=== PATIENT | female | born 1945 | race Caucasian/White ===

== ENCOUNTER 2017-06-21 06:55 | Observation (INO) | payer MEDICARE, BC ==
--- NOTE | 2017-06-16 18:36 | HP ---
Amended report to enter cosigning physician. CC: Dr. Charla Lilly; Dr. Gerald Callejas* ADMISSION HISTORY AND PHYSICAL: DATE OF ADMISSION: 06/21/17 ATTENDING SURGEON: Dr. Chad Purdy* (dictated by FARHAT Zhang). CHIEF COMPLAINT: Hiatal hernia. HISTORY OF PRESENT ILLNESS: This is a 71-year-old female, who has a 2-year history of reflux symptoms that have worsened in recent months. She had had an episode of dark stools back in November, which was self-limited. More recently, she has noted increased pressure and discomfort in the epigastric region related to eating and drinking. She has also noticed some difficulty taking a deep breath in relation to eating and drinking. Back in the fall, she had also had some abdominal pain in her left side. Eventually, she underwent workup, which included CT scan on 04/21/17, which showed a moderate-sized hiatal hernia , some fatty changes in the liver, focal intrahepatic biliary ductal dilatation , which was followed up with an MRCP on 05/19/17, which showed no evidence of obstruction. In addition, CT showed evidence of diverticulosis and mild left proximal hydroureter felt to be secondary to a crossing accessory renal vein. EGD was performed on 05/27/[address] Callejas, also confirming the presence of hiatal hernia with patulous GE junction and some evidence of erosions within the hernia sac. The remainder of the endoscopy was normal. The patient reports the early satiety and fullness as well as discomfort. She also notes a weight loss of approximately 9 pounds in the last month or two. She has been maintained on PPI. She was seen in the office by Dr. Purdy on 06/06/17. He has reviewed her workup and has recommended repair of this large hiatal hernia. The patient understands the indications, the risks, benefits, and the expected perioperative course. She would like to proceed as scheduled with laparoscopic repair of hiatal hernia with fundoplication. PAST MEDICAL HISTORY: Hypertension; GERD; left breast cancer; history of tachycardia, previously evaluated by Dr. Fernandez; history of hyponatremia and hypokalemia secondary to prior use of diuretic. She has diplopia, which is felt to be a cranial nerve palsy, possibly related to stroke, though she has had no other symptoms, this has been present and stable for approximately 2 years. 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 CURRENT MEDICATIONS: 1. Amlodipine 5 mg b.i.d. 2. Losartan 25 mg once daily. 3. Rosuvastatin 5 mg once daily. 4. Calcium with vitamin D once daily. 5. Vitamin E 400 mg once daily (the patient has held it in preparation for surgery). 6. Aspirin 81 mg (the patient will have been off for 10 days prior to surgery). 7. Osteo Bi-Flex with glucosamine once daily. 8. Potassium chloride 20 mEq once daily. 9. Fluticasone nasal spray p.r.n. 10. Pantoprazole 40 mg b.i.d. 11. Tamoxifen 20 mg once daily (the patient is instructed to hold before surgery). DRUG ALLERGIES: SULFA (the patient does not recall specific reaction), BETADINE (local reaction with rash and/or hives), TAPE and EKG PADS (local reactions). FAMILY HISTORY: Positive for DVT in a sister, which occurred after a long plane flight. No additional family history of thromboembolic disease. No family history of bleeding or anesthesia problems. SOCIAL HISTORY: The patient is . She is fairly active. She is a life- long nonsmoker. She drinks approximately 1 glass of wine or less per week. She denies other recreational drug use. REVIEW OF SYSTEMS: General: No recent constitutional symptoms or acute illnesses other than described in the HPI. Integument: No acute problems reported. Eyes: Diplopia. No other changes reported. Ears, Nose, and Throat: No problems reported. Cardiovascular: No chest pain or palpitations. EKG performed within the past year. She is treated for hypertension. Respiratory: No history of asthma, chronic cough, or shortness of breath, other than described in the HPI. GI: As above per HPI. No lower GI symptoms. Colonoscopy performed within the past 5 years. GYMNASTIC COACH: No problems reported. Endocrine: No diabetes or thyroid dysfunction. Hematological/Oncological: She is completing a 5-year course of tamoxifen, status post excision DCIS of the left breast. PHYSICAL EXAMINATION GENERAL: Well-nourished, well-developed female, in no acute distress. VITAL SIGNS: Height 63 inches, weight 154 pounds, blood pressure 128/72, pulse 66. HEENT: Pupils are equal, round, reactive. EOMs intact. No conjunctival pallor. Oropharynx: Teeth in good repair. No intraoral lesions. NECK: No lymphadenopathy, thyromegaly, or masses. LUNGS: Clear to auscultation. No wheezes or rales. HEART: Regular rate and rhythm. No murmur appreciated. BREASTS: Not examined. ABDOMEN: Soft, mild tenderness in the epigastric region. No palpable masses or organomegaly. Well-healed Pfannenstiel incision. BACK: No spinous process or CVA tenderness. GENITALIA: Not done. RECTAL: Not done. EXTREMITIES: Trace edema bilaterally. No calf tenderness. NEUROLOGICAL: Grossly intact. SKIN: Warm and dry. No suspicious rashes or lesions noted. IMPRESSION: Hiatal hernia. PLAN: Laparoscopic repair, hiatal hernia with fundoplication. FARHAT ZHANG [id number]/[facility] #: [id number] MTDD
[~2017-06-21 06:55] MED LIST: Buffered Lidocaine 0.9% SYRIN* 5 ML/SYR SYRINGE INTRADERM ONE; Famotidine TAB* 20 MG PO ONE; Metoclopramide TAB* 10 MG PO ONE
[2017-06-21] MEDS ORDERED: Metoclopramide TAB* 10 MG ONE (07:26)
[2017-06-21] MEDS ORDERED: ceFAZolin 1 GM in Dextrose (*) 2 GM/100 ML BAG IVPB ONE (07:26)
[2017-06-21] MEDS ORDERED: Heparin VIAL(*) 5000 UNITS/ML VIAL (FIVE THOUSAND) ONE (07:26)
[2017-06-21] MEDS ORDERED: Famotidine TAB* 20 MG ONE (07:26)
[2017-06-21] MEDS ORDERED: Buffered Lidocaine 0.9% SYRIN* 5 ML/SYR SYRINGE ONE (07:27)
[2017-06-21] MEDS ORDERED: Ondansetron ODT TAB* 4 MG PO PRN (08:02)
[2017-06-21] MEDS ORDERED: fentaNYL* 50 MCG/ML 2 ML VIAL (100 MCG VIAL) IV PRN (08:02)
[2017-06-21] MEDS ORDERED: Naloxone* 0.4 MG/ML 1 ML VIAL IV PRN ×2 (08:02→10:02)
[2017-06-21] MEDS ORDERED: Ondansetron INJ* 2 MG/ML VIAL ONE ×2 (08:04→12:41)
[2017-06-21] MEDS ORDERED: Lidocaine 2% PF * 5 ML VIAL ONE (08:04)
[2017-06-21] MEDS ORDERED: Propofol* 10 MG/ML 20 ML BTL IV PUSH ONE (08:04)
[2017-06-21] MEDS ORDERED: Ketorolac INJ* 30 MG/ML 1 ML VIAL ONE (08:04)
[2017-06-21] MEDS ORDERED: Dexamethasone IV* 4 MG/ML 1 ML (4 MG) ONE (08:04)
[2017-06-21] MEDS ORDERED: Midazolam* 1 MG/ML 5 ML VIAL (5 MG) ONE (08:05)
[2017-06-21] MEDS ORDERED: Phenylephrine INJ* 10 MG/ML 1 ML VIAL (10 MG) ONE (08:05)
[2017-06-21] MEDS ORDERED: Cisatracurium* 2 MG/ML MDV 5 ML ONE (08:05)
[2017-06-21] MEDS ORDERED: fentaNYL* 50 MCG/ML 2 ML VIAL (100 MCG VIAL) ONE ×3 (08:05→12:29)
[2017-06-21] MEDS ORDERED: Bupivacaine 0.25% SDV* 30 ML ONE ×2 (08:43→08:47)
[2017-06-21] MEDS ORDERED: ceFAZolin 1 GM in Dextrose (*) 1 GM/50 ML BAG IVPB ONE (08:56)
[2017-06-21] MEDS ORDERED: EPHEDrine (Pressors)* 50 MG/ML VIAL ONE (09:15)
[2017-06-21] MEDS ORDERED: Ondansetron INJ* 2 MG/ML VIAL IV PRN ×2 (10:02→11:56)
[2017-06-21] MEDS ORDERED: Fluticasone NASAL SPRAY 50MCG* 16 gm SPRAY BTL BOTH NARES PRN (11:55)
[2017-06-21] MEDS ORDERED: HYDROmorphone INJ* 2 MG/ML CARPUJECT SYRINGE IV PRN (11:56)
[2017-06-21] MEDS ORDERED: Ketorolac INJ* 30 MG/ML 1 ML VIAL IV PRN (11:56)
[2017-06-21] MEDS ORDERED: HYDROcodone/ACET. 7.5/325 LIQ* 15 ML UDC PO PRN (12:04)
[2017-06-21] MEDS: fentaNYL* 50 MCG/ML 2 ML VIAL (100 MCG VIAL) IV PRN ×3 (12:06→12:30)
[2017-06-21] MEDS ORDERED: HYDROmorphone INJ* 2 MG/ML CARPUJECT SYRINGE ONE (12:41)
[2017-06-21] MEDS: HYDROmorphone INJ* 1 MG/ML CARPUJECT SYRINGE IV PRN ×2 (12:49→12:59)
[2017-06-21] MEDS: Heparin VIAL(*) 5000 UNITS/ML VIAL (FIVE THOUSAND) SUBCUT SCH ×2 (14:32→22:24)
[2017-06-21] MEDS ORDERED: Losartan TAB* 25 MG PO SCH (18:00)
[2017-06-22] MEDS: Heparin VIAL(*) 5000 UNITS/ML VIAL (FIVE THOUSAND) SUBCUT SCH (05:32)
[2017-06-22] MEDS: Tamoxifen TAB* 10 MG PO SCH ×2 (08:03→08:07)
--- NOTE | 2017-06-22 08:09 | PN ---
Progress Note - Progress Note Date of Service: 06/22/17 SOAP: Subjective: Pt reports VALLADARES overnight with some nausea. She is better now. She has some abd pain and shoulder pain. Objective: Vital Signs Temp 98.1 F 06/22/17 03:37 Pulse 84 06/22/17 03:37 Resp 16 06/22/17 03:37 BP 105/50 06/22/17 03:37 Pulse Ox 97 06/22/17 03:37 Gen: NAD Abd: incisions with dressings c/d/i; soft; min tender. Intake & Output 06/21/17 06/22/17 06/22/17 18:59 06:59 18:59 Intake Total 1925 1511 Output Total 300 1500 950 Balance 1625 11 -950 Weight 153 lb Intake: IV Fluids 1850 911 LR 1750 911 NS 100ML, Cefazolin 2G 100 Oral 75 600 Output: Urine 300 1500 950 Assessment: POD#1 s/p lap PEH repair/Teofilo. Doing well. Plan: OK for discharge. RTO next week.
[2017-06-22 08:46] VITALS: BP 103/53
[2017-06-22] MEDS ORDERED: amLODIPine TAB* 5 MG PO SCH (09:00)
[2017-06-22] MEDS ORDERED: Atorvastatin* 10 MG TAB PO SCH (09:00)
--- NOTE | 2017-06-22 12:17 | OP ---
CC: Charla Lilly MD; Gerald Callejas MD * DATE OF OPERATION: 06/21/17 - ROOM #331 DATE OF : 47 SURGEON: Chad Purdy MD AIRCRAFT ENGINE ASSEMBLER: Cecilio Gonzalez MD PRE-OP DIAGNOSIS: Paraesophageal hernia. POST-OP DIAGNOSIS: Paraesophageal hernia. OPERATIVE PROCEDURE: Laparoscopic repair of paraesophageal hernia with Teofilo fundoplication. ESTIMATED BLOOD LOSS: Less than 10 mL. IV FLUIDS: 1750 mL crystalloid. SPECIMEN: None. DRAINS: None. COMPLICATIONS: None. COUNTS: The instrument, needle, and sponge counts correct. DESCRIPTION OF PROCEDURE: The patient was brought to the operating room and placed on table supine. Sequential compression devices were placed on both lower extremities. General anesthesia was administered. Ontiveros catheter was placed. She was positioned and padded appropriately. She received appropriate intravenous antibiotics. She was prepped and draped in usual sterile fashion. Time-out was performed. Local anesthetic was infiltrated into the skin and soft tissue prior to making each incision. Entry into the abdomen was through a transumbilical incision made vertically to accommodate a 5 mm trocar. After open access of the abdominal cavity, a 5 mm optical trocar was placed into the peritoneal cavity, carbon dioxide was insufflated to a pressure of 15 mmHg. Under direct visualization, 5 mm trocar was placed in the right upper quadrant and the left upper quadrant laterally and a 12 mm trocar was placed in the left upper quadrant medially. A Angela liver retractor was placed percutaneously in the subxiphoid position and used to elevate the left lobe of the liver. There appeared to be a large hiatal hernia, paraesophageal type. The stomach was reduced from the hernia using a hand-over- hand technique with atraumatic graspers. The hernia sac was elevated and incised over the left oskar of the diaphragm. Some short gastric vessels were divided to aid in this dissection. The dissection proceeded through the hernia sac into the mediastinum and the hernia sac was dissected free from the mediastinum with identification and preservation of the vagal trunks. The dissection proceeded across the anterior portion of the hiatus and then from the pars flaccida. The dissection proceeded anterior as well to meet the prior area of dissection. Once the mediastinum had been entered, the dissection proceeded around posteriorly until a window could be created behind the gastroesophageal junction and this was then encircled with a 0.25-inch Girard drain, which was then used to retract the esophagus during the remaining portion of the dissection. A circumferential dissection of the esophagus was completed well up into the mediastinum in order to obtain adequate length of about 4 to 5 cm of intraabdominal esophagus. The vagal trunks were again identified and preserved. LigaSure was used for this dissection. The pleura on each side was identified and dissected free without injury. After completing the dissection, the diaphragmatic hernia was closed with interrupted 0- Ethibond sutures. First two sutures were simple sutures and then the remaining 3 sutures were pledgeted with polyester pledgeting material cut from a vascular patch. The closure was sized around a 56-Yi bougie. After completing the closure of the hiatus, a 360 degree fundo- plication was performed with 0-Ethibond sutures, again used to plicate the fundus. The plication was short and floppy over a 56-Yi bougie with approximately a 2 cm length. The middle suture incorporated portion of the wall of the esophagus. After assuring hemostasis, the ports removed under direct visualization and carbon dioxide was released. The incisions were closed with 4-0 Monocryl in subcuticular fashion and Steri-Strips were applied with dry dressings. The patient tolerated this procedure well. She was extubated and transferred to recovery room in a stable condition. [id number]/[facility] #: [id number] BILL
--- NOTE | 2017-06-23 00:44 | DS ---
CC: Charla Lilly MD; Gerald Callejas MD * DISCHARGE SUMMARY: DATE OF ADMISSION: 06/21/17 DATE OF DISCHARGE: 06/22/17 ATTENDING SURGEON: Chad Purdy MD * (DICTATED BY FARHAT PRADO) HOSPITAL COURSE: Please refer to admission history and physical and operative note for details. The patient was taken to the operating room on 06/21/[address] Purdy and underwent laparoscopic repair of paraesophageal hiatal hernia with Teofilo fundoplication. Surgery was uneventful and as of the morning of discharge, the patient was doing well in terms of oral intake of clear liquids. Her pain was minimal and in fact she is managed on ketorolac only. She was seen in the morning of discharge by Dr. Purdy. PHYSICAL EXAMINATION: Vital Signs: 98.9, blood pressure 103/53, pulse 74, respirations 16, room air saturation 97%. Please see his note for exam details. IMPRESSION: Status post laparoscopic repair paraesophageal hiatal hernia with Teofilo fundoplication, doing well. PLAN: Home today. Instructions were reviewed. She has a followup in our office next week. She will resume her usual medical regimen. FARHAT PRADO [id number]/[facility] #: [id number] MTDD
== END 2017-06-22 09:40 | disposition home or self-care (01) ==
LOC: OR 06:55 → SSU 11:57
PROVIDERS: ADMIT Surgery; ATTEND Surgery
PROC: 0DV44ZZ Restriction of Esophagogastric Junction, Percutaneous Endoscopic Approach (ICD-10-PCS; 2017-06-21)
PROC: 0BQT4ZZ Repair Diaphragm, Percutaneous Endoscopic Approach (ICD-10-PCS; principal; 2017-06-21 08:45)
DX: K44.9 Diaphragmatic hernia without obstruction or gangrene (principal); I10 Essential (primary) hypertension; K21.9 Gastro-esophageal reflux disease without esophagitis; Z79.899 Other long term (current) drug therapy; Z88.2 Allergy status to sulfonamides; Z88.8 Allergy status to other drugs, medicaments and biological substances; Z85.3 Personal history of malignant neoplasm of breast
CPT/HCPCS: 96374; 96375; 96376; A9270-GY; G0378; J0690; J1100; J1170; J1644; J1885; J2250; J2405; J2704; J3010

== ENCOUNTER 2018-07-18 11:09 | Observation (INO) | payer MEDICARE, BC ==
--- OUTSIDE RECORDS SUMMARY | 2018-07-14 16:00 | XMS REPORT | Continuity of Care Document ---
:1945 External Reference #:[id number] Author Name KeyVeronica mcpherson Care Team Providers Name Role Phone Charla Lilly MD Primary Care Physician Unavailable Payers Date Identification Numbers Payment Provider Subscriber Policy Number: [id number] Medicare Candida Kebede PayID: [id number] [address] [place] [address] Policy Number: [id number] [facility] Angus Kebede PayID: [id number] [address] [place] [address] Problems Active Problems Provider Date FH: Myocardial infarct in 1st degree male Allegra Fernandez M.D. Onset: 2016 relative <55 years Mixed hyperlipidemia Allegra Fernandez M.D. Onset: 12/31/2016 Essential hypertension Allegra Fernandez M.D. Onset: 12/31/2016 Palpitations Allegra Fernandez M.D. Onset: 12/31/2016 Diplopia Monty Grace M.D. Onset: 12/21/2016 Multiple cranial nerve palsy Monty Grace M.D. Onset: 11/22/2016 Localized, primary osteoarthritis Vickey Weiner M.D. Onset: 04/03/2015 Family History Date Family Member(s) Observation Comments General cancer in immediate family General Heart Disease General Deep Venous Thrombosis (DVT) Father due to Lung disease () Father due to Heart Disease () Mother Rheumatoid Arthritis 69 yo Mother due to Rheumatoid () Arthritis Mother due to Heart Disease () First Brother Coronary Artery Disease (CAD) 1/2 bro (mother same) [place] under 50 yo Second Brother Coronary Artery Disease (CAD) 1/2 bro (father the same) CABG First Sister Deep Venous Thrombosis (DVT) with huge PE First Sister Pulmonary Embolism (Pe) Social History Type Date Description Comments Sex Unknown Marital Status Lives With spouse Occupation Retired ETOH Use Occasionally consumes wine Tobacco Use Start: Unknown Patient has never smoked Recreational Drug Use Denies Drug Use Smoking Status Reviewed: 07/13/18 Patient has never smoked Exercise Type/Frequency Walks 5 times a week Allergies, Adverse Reactions, Alerts Active Allergies Reaction Severity Comments Date Sulfamethoxazole unknown 09/27/2016 Tape Severe- urticaria with EKG 09/27/2016 stickers, surgical tape EKG Electrodes itch, Red at site per patient 12/31/2016 Betadine itchy, contact dermatitis 03/30/2017 Inactive Allergies NKDA 04/03/2015 Medications Active Medications SIG Qnty Indications Ordering Provider Date Gaviscon 1 tab by mouth Chad Purdy MD, 07/13/2018 80-14.2mg three times a FACS Chewtabs day as needed Co-Enzyme Q-10 1 cap by mouth Other Ordering 06/22/2018 30mg every day Provider Capsules Amlodipine Besylate 1 by mouth twice 90tabs I10 Allegra Fernandez, 02/08/2017 5mg a day M.D. Tablets Fluticasone Propionate 1 spray each Charla Lilly nostril daily as MD Kena 50mcg/Act Suspension needed Calcium + D 1 by mouth once Unknown Tablets daily Rosuvastatin Calcium 1 tablet po Charla Lilly 5mg daily MD Kena Tablets Losartan Potassium 1 by mouth every Unknown 25mg day Tablets Pantoprazole Sodium twice a day Unknown 40mg Tablets DR History Medications Hydrocodone 15 milliliters by 118ml Carol Kruger 06/16/2017 - Bitartrate/Acetaminophen mouth every 4 MD Maury Unknown 7.5-325mg/15ML hours as needed Solution for stronger pain Crestor 1 by mouth every Allegra Fernandez, 12/29/2016 - 10mg Tablets day M.D. 12/30/2016 Rosuvastatin Calcium 1 tablet po daily Cody June, - 5mg Tablets ( medication 02/07/2017 change tuesday12/27/16) Omeprazole 1 by mouth every Unknown - 20mg Capsules DR day Unknown Vitamin E 1 cap po daily Unknown - 400mg Capsules Unknown Osteo Biflex Glucosamine 2 tablet po daily Unknown - Capsules Unknown Aspir-81 1 by mouth every Unknown - 81mg Tablets DR day ( started 06/13/2018 taking 2016 for 1 year now) Potassium Chloride ER 1 tablet po daily Charla Lilly - 20Meq Tablets ER MD Kena Unknown Rosuvastatin Calcium SladeCody, - 5mg Tablets 09/27/2016 Chlorthalidone Charla Lilly - 25mg Tablets MD Kena 09/27/2016 Tamoxifen Citrate Pelaez, - 20mg Tablets DANICA Rashid 09/27/2016 Chlorthalidone 1 tab by mouth Unknown - 25mg Tablets every day Unknown Gabapentin 1 by mouth as Unknown - 100mg Capsules needed for Unknown sciatic pain Crestor 5mg 1 by mouth every Unknown - Tablets day 12/30/2016 Tamoxifen Citrate once a day Unknown - 20mg Tablets Unknown Medications Administered in Office Medication SIG Qnty Indications Ordering Provider Date Depomedrol 40MG Vickey Weiner M.D. 03/30/2017 Injection Technetium TC 99M Cecilio Jj, DO [facility] 01/07/2017 Tetrofosmin, Per Unit Dose Up To 40 Millicuries Injection Depomedrol 40MG Vickey Weiner M.D. 04/03/2015 Injection Vital Signs Date Vital Result Comment 07/13/2018 8:45am Weight 160.00 lb Heart Rate 72 /min BP Systolic 122 mmHg BP Diastolic 72 mmHg Respiratory Rate 16 /min Body Temperature 97.4 F 06/29/2017 9:07am Heart Rate 66 /min BP Systolic Sitting 100 mmHg BP Diastolic Sitting 62 mmHg Respiratory Rate 16 /min Body Temperature 97.3 F 06/16/2017 1:28pm Height 63 inches 5'3" Weight 154.00 lb Heart Rate 66 /min BP Systolic Sitting 128 mmHg BP Diastolic Sitting 72 mmHg Respiratory Rate 18 /min Body Temperature 98.2 F BMI (Body Mass Index) 27.3 kg/m2 06/06/2017 9:02am Height 63 inches 5'3" Weight 154.00 lb Heart Rate 68 /min BP Systolic 128 mmHg BP Diastolic 80 mmHg Respiratory Rate 16 /min Body Temperature 97.5 F BMI (Body Mass Index) 27.3 kg/m2 03/30/2017 11:23am Height 63 inches 5'3" Weight 162.00 lb BP Systolic 134 mmHg BP Diastolic 72 mmHg Respiratory Rate 18 /min Pain Level 7 BMI (Body Mass Index) 28.7 kg/m2 02/08/2017 4:14pm Height 63 inches 5'3" Weight 162.00 lb with shoes Heart Rate 62 /min BP Systolic Sitting 152 mmHg Lue lg cuff BP Diastolic Sitting 100 mmHg Lue lg cuff BP Systolic Standing 160 mmHg Lue lg cuff BP Diastolic Standing 100 mmHg Lue lg cuff Respiratory Rate 17 /min BMI (Body Mass Index) 28.7 kg/m2 Ejection Fraction 55-60% date 02/03/17 ECHO 12/31/2016 9:41am Height 63 inches 5'3" Weight 158.00 lb without shoes Heart Rate 66 /min BP Systolic 150 mmHg Rue reg cuff BP Diastolic 90 mmHg Rue reg cuff BP Systolic Sitting 146 mmHg Lue reg cuff BP Diastolic Sitting 88 mmHg Lue reg cuff BP Systolic Standing 148 mmHg Lue reg cuff BP Diastolic Standing 88 mmHg Lue reg cuff Respiratory Rate 15 /min BMI (Body Mass Index) 28.0 kg/m2 12/21/2016 9:02am Height 63 inches 5'3" Weight 160.00 lb Heart Rate 64 /min BP Systolic 134 mmHg BP Diastolic 74 mmHg Respiratory Rate 12 /min BMI (Body Mass Index) 28.3 kg/m2 11/22/2016 9:22am Height 63 inches 5'3" Weight 150.00 lb Heart Rate 64 /min reg/irregular BP Systolic Sitting 138 mmHg BP Diastolic Sitting 88 mmHg Respiratory Rate 16 /min BMI (Body Mass Index) 26.6 kg/m2 10/05/2016 9:47am Height 63 inches 5'3" Weight 155.00 lb Heart Rate 78 /min BP Systolic Sitting 114 mmHg BP Diastolic Sitting 76 mmHg Respiratory Rate 14 /min BMI (Body Mass Index) 27.5 kg/m2 09/27/2016 2:06pm Height 63 inches 5'3" Weight 155.00 lb Heart Rate 68 /min BP Systolic Sitting 148 mmHg BP Diastolic Sitting 84 mmHg Respiratory Rate 14 /min BMI (Body Mass Index) 27.5 kg/m2 04/03/2015 8:52am Height 63 inches 5'3" Weight 149.00 lb Heart Rate 73 /min BP Systolic 132 mmHg BP Diastolic 84 mmHg BMI (Body Mass Index) 26.4 kg/m2 Results Test Date Facility Test Result H/L Range Note CBC Auto Diff 06/16/2017 [facility] White Blood 5.7 10^3/uL N 3.5-10.[address] [place] [address] [phone] Red Blood Count 4.56 10^6/uL N 4.0-5.4 Hemoglobin 14.3 g/dL N 12.0-16.0 Hematocrit 42 % N 35-47 Mean Corpuscular Volume 92 fL N 80-97 Mean Corpuscular Hemoglobin 31 pg N 27-31 Mean Corpuscular HGB Conc 34 g/dL N 31-36 Red Cell Distribution Width 14 % N 10.5-15 Platelet Count 230 10^3/uL N 150-450 Mean Platelet Volume 9.0 um3 N 7.4-10.4 Abs Neutrophils 3.4 10^3/uL N 1.5-7.7 Abs Lymphocytes 1.6 10^3/uL N 1.0-4.8 Abs Monocytes 0.5 10^3/uL N 0-0.8 Abs Eosinophils 0.1 10^3/uL N 0-0.6 Abs Basophils 0.1 10^3/uL N 0-0.2 Abs Nucleated RBC 0 10^3/uL Granulocyte % 60.3 % N 38-83 Lymphocyte % 28.1 % N 25-47 Monocyte % 9.3 % High 0-7 Eosinophil % 1.4 % N 0-6 Basophil % 0.9 % N 0-2 Nucleated Red Blood Cells % 0 Basic Metabolic 06/16/2017 [facility] Sodium 133 mmol/L Low 139-[address] [place] [address] [phone] Potassium 3.8 mmol/L N 3.5-5.0 Chloride 98 mmol/L Low 101-111 Co2 Carbon Dioxide 27 mmol/L N 22-32 Anion Gap 8 mmol/L N 2-11 Glucose 89 mg/dL N 70-100 Blood Urea Nitrogen 9 mg/dL N 6-24 Creatinine 0.76 mg/dL N 0.51-0.95 BUN/Creatinine Ratio 11.8 N 8-20 Calcium 9.3 mg/dL N 8.6-10.3 Egfr Non- 75.2 >60 Egfr 96.8 >60 1 Myasthenia 11/22/2016 [facility] MG Lambert-Eaton See Comment N 2 Gravis (), [address] [place] [address] [phone] Acetylcholine Receptor Binding 0.00 nmol/L N <=0.02 3 Acetylcholine Recept Mod Ab 0 % N 4 Anti-Striated Muscle Antibody Negative titer N <1:120 5 Paraneoplastic 11/22/2016 [facility] Paraneoplastic Ab See Comment N [address] [place] [address] [phone] Anti-Neuronal Nuclear Ab Type1 Negative titer N <1:240 Reflex Added None. N 7 Anti-Neuronal Nuclear Ab Type2 Negative titer N <1:240 8 Anti-Neuronal Nuclear Ab Type3 Negative titer N <1:240 9 Anti-Glial/Neuronal Nuc Ab-1 A Negative titer N <1:240 10 Purkinje Cell Cytoplasm Type 1 Negative titer N <1:240 11 Purkinje Cell Cytoplasm Type 2 Negative titer N <1:240 12 Purkinje Cell Cytoplasm Typ Tr Negative titer N <1:240 13 Amphiphysin Antibody Negative titer N <1:240 14 CRMP-5 IgG Antibody Negative titer N <1:240 15 Anti-Striated Muscle Antibody Negative titer N <1:120 16 Calcium Channel Binding Ab P/Q 0.02 nmol/L N <=0.02 17 N Type Calcium Channel Binding 0.00 nmol/L N <=0.03 18 ACh Receptor Muscle Binding Ab 0.00 nmol/L N <=0.02 19 AChR Ganglionic Neuronal Ab 0.00 nmol/L N <=0.02 20 Voltage-Gated Potassium Chann 0.00 nmol/L N <=0.02 21 Laboratory test 09/29/2016 [facility] Anti Nuclear 1.0 U N [address] [place] [address] [phone] Comp Metabolic 09/29/2016 [facility] Sodium 129 Low 133-[address] mmol/L 5 [place] [address] [phone] Potassium 3.7 mmol/L N 3.5-5.0 Chloride 93 mmol/L Low 101-111 Co2 Carbon Dioxide 27 mmol/L N 22-32 Anion Gap 9 mmol/L N 2-11 Glucose 77 mg/dL N 70-100 Blood Urea Nitrogen 10 mg/dL N 6-24 Creatinine 0.65 mg/dL N 0.51-0.95 BUN/Creatinine Ratio 15.4 N 8-20 Calcium 9.4 mg/dL N 8.6-10.3 Total Protein 7.3 g/dL N 6.4-8.9 Albumin 4.3 g/dL N 3.2-5.2 Globulin 3.0 g/dL N 2-4 Albumin/Globulin Ratio 1.4 N 1-3 Total Bilirubin 0.60 mg/dL N 0.2-1.0 Alkaline Phosphatase 46 U/L N 34-104 Alt 10 U/L N 7-52 Ast 18 U/L N 13-39 Egfr Non- 90.4 N >60 Egfr 116.2 N >60 23 CBC Auto Diff 09/29/2016 [facility] White Blood 7.3 10^3/uL N 3.5-10.[address] [place] [address] [phone] Red Blood Count 4.85 10^6/uL N 4.0-5.4 Hemoglobin 15.0 g/dL N 12.0-16.0 Hematocrit 45 % N 35-47 Mean Corpuscular Volume 94 fL N 80-97 Mean Corpuscular Hemoglobin 31 pg N 27-31 Mean Corpuscular HGB Conc 33 g/dL N 31-36 Red Cell Distribution Width 14 % N 10.5-15 Platelet Count 229 10^3/uL N 150-450 Mean Platelet Volume 9 um3 N 7.4-10.4 Abs Neutrophils 4.5 10^3/uL N 1.5-7.7 Abs Lymphocytes 1.9 10^3/uL N 1.0-4.8 Abs Monocytes 0.6 10^3/uL N 0-0.8 Abs Eosinophils 0.1 10^3/uL N 0-0.6 Abs Basophils 0.1 10^3/uL N 0-0.2 Abs Nucleated RBC 0 10^3/uL N Granulocyte % 62.3 % N 38-83 Lymphocyte % 26.6 % N 25-47 Monocyte % 8.8 % N 1-9 Eosinophil % 1.3 % N 0-6 Basophil % 1.0 % N 0-2 Nucleated Red Blood Cells % 0.1 N Laboratory test 09/29/2016 [facility] Partial 25.3 seconds Low 26.0-36.[address] [place] [address] PTT [phone] Syphillis Igg W/Reflex RPR Nonreactive N Nonreactive 24 Lyme Disease Serology Negative N Negative 25 Inr/Protime 09/29/2016 [facility] Inr 0.92 N 0.89-1.[address] [place] [address] [phone] Laboratory test 09/29/2016 [facility] Nuclear AB <1:80 N 26 finding 101 [facility] ([facility]) By [place] ([place] [address] Igg ) [phone] Erythrocyte Sed Rate 7 mm/Hr N 0-40 C Reactive Protein 3.16 mg/L N < 5.00 27 Free Thyroxine 09/29/2016 [facility] Thyroxine 1.1 TBI N 0.8 - 1.3 Index (Fti),Serum [address] [place] [address] Capacity, S [phone] Thyroxine, Total, S 7.5 g/dL N 4.5 - 11.7 Free Thyroxine Index 6.8 g/dL N 4.8 - 12.7 28 Laboratory test 09/29/2016 [facility] TSH (Thyroid 4.31 mcIU/mL N 0.34-5.60 finding 101 [facility] Stim Horm) [place], [place] [id number] [phone] Vitamin B12 And 09/29/2016 [facility] Vitamin B12 677 pg/mL N 180-914 29 Folate Serum [address] [place], [place] [id number] [phone] Folic Acid (Folate) 17.99 ng/mL N >3.99 1 Because ethnic data is not always readily available, this report includes an eGFR for both -Americans and non- Americans. The National Kidney Disease Education Program (NKDEP) does not endorse the use of the MDRD equation for patients that are not between the ages of 18 and 70, are , have extremes of body size, muscle mass, or nutritional status, or are non- or non-. According to the National Kidney Foundation, irrespective of diagnosis, the stage of the disease is based on the level of kidney function: Stage Description GFR(mL/min/1.73 m(2)) 1 Kidney damage with normal or decreased GFR 90 2 Kidney damage with mild decrease in GFR 60-89 3 Moderate decrease in GFR 30-59 4 Severe decrease in GFR 15-29 5 Kidney failure <15 (or dialysis) 2 A negative result does not exclude the diagnosis of autoimmune myasthenia gravis. 3 ADDITIONAL INFORMATION This test was developed and its performance characteristics determined by [facility] in a manner consistent with CLIA requirements. This test has not been cleared or approved by the U.S. Food and Drug Administration. 4 REFERENCE VALUE 0-20% (reported as _% loss of AChR) ADDITIONAL INFORMATION This test was developed and its performance characteristics determined by [facility] in a manner consistent with CLIA requirements. This test has not been cleared or approved by the U.S. Food and Drug Administration. 5 ADDITIONAL INFORMATION This test was developed and its performance characteristics determined by [facility] in a manner consistent with CLIA requirements. This test has not been cleared or approved by the U.S. Food and Drug Administration. Test Performed by: [facility] - [address] [address] 6 No informative autoantibodies were detected in the Paraneoplastic Evaluation. However, a negative result does not exclude neurological autoimmunity with or without associated neoplasia. Sensitivity and specificity of antibody testing are enhanced by testing both serum and CSF. 7 ADDITIONAL INFORMATION This test was developed and its performance characteristics determined by [facility] in a manner consistent with CLIA requirements. This test has not been cleared or approved by the U.S. Food and Drug Administration. 8 ADDITIONAL INFORMATION This test was developed and its performance characteristics determined by [facility] in a manner consistent with CLIA requirements. This test has not been cleared or approved by the U.S. Food and Drug Administration. 9 ADDITIONAL INFORMATION This test was developed and its performance characteristics determined by [facility] in a manner consistent with CLIA requirements. This test has not been cleared or approved by the U.S. Food and Drug Administration. 10 ADDITIONAL INFORMATION This test was developed and its performance characteristics determined by [facility] in a manner consistent with CLIA requirements. This test has not been cleared or approved by the U.S. Food and Drug Administration. 11 ADDITIONAL INFORMATION This test was developed and its performance characteristics determined by [facility] in a manner consistent with CLIA requirements. This test has not been cleared or approved by the U.S. Food and Drug Administration. 12 ADDITIONAL INFORMATION This test was developed and its performance characteristics determined by [facility] in a manner consistent with CLIA requirements. This test has not been cleared or approved by the U.S. Food and Drug Administration. 13 ADDITIONAL INFORMATION This test was developed and its performance characteristics determined by [facility] in a manner consistent with CLIA requirements. This test has not been cleared or approved by the U.S. Food and Drug Administration. 14 ADDITIONAL INFORMATION This test was developed and its performance characteristics determined by [facility] in a manner consistent with CLIA requirements. This test has not been cleared or approved by the U.S. Food and Drug Administration. 15 ADDITIONAL INFORMATION This test was developed and its performance characteristics determined by [facility] in a manner consistent with CLIA requirements. This test has not been cleared or approved by the U.S. Food and Drug Administration. 16 ADDITIONAL INFORMATION This test was developed and its performance characteristics determined by [facility] in a manner consistent with CLIA requirements. This test has not been cleared or approved by the U.S. Food and Drug Administration. 17 ADDITIONAL INFORMATION This test was developed and its performance characteristics determined by [facility] in a manner consistent with CLIA requirements. This test has not been cleared or approved by the U.S. Food and Drug Administration. 18 ADDITIONAL INFORMATION This test was developed and its performance characteristics determined by [facility] in a manner consistent with CLIA requirements. This test has not been cleared or approved by the U.S. Food and Drug Administration. 19 ADDITIONAL INFORMATION This test was developed and its performance characteristics determined by [facility] in a manner consistent with CLIA requirements. This test has not been cleared or approved by the U.S. Food and Drug Administration. 20 ADDITIONAL INFORMATION This test was developed and its performance characteristics determined by [facility] in a manner consistent with CLIA requirements. This test has not been cleared or approved by the U.S. Food and Drug Administration. 21 ADDITIONAL INFORMATION This test was developed and its performance characteristics determined by [facility] in a manner consistent with CLIA requirements. This test has not been cleared or approved by the U.S. Food and Drug Administration. Test Performed by: [facility] - [place] [id number] 22 REFERENCE VALUE <=1.0 (Negative) Test Performed by: [address] [address] 23 Because ethnic data is not always readily available, this report includes an eGFR for both -Americans and non- Americans. The National Kidney Disease Education Program (NKDEP) does not endorse the use of the MDRD equation for patients that are not between the ages of 18 and 70, are , have extremes of body size, muscle mass, or nutritional status, or are non- or non-. According to the National Kidney Foundation, irrespective of diagnosis, the stage of the disease is based on the level of kidney function: Stage Description GFR(mL/min/1.73 m(2)) 1 Kidney damage with normal or decreased GFR 90 2 Kidney damage with mild decrease in GFR 60-89 3 Moderate decrease in GFR 30-59 4 Severe decrease in GFR 15-29 5 Kidney failure <15 (or dialysis) 24 Warning: A positive result is not useful for establishing a diagnosis of syphilis. In most situations, such a result may reflect a prior treated infection; a negative result can exclude a diagnosis of syphilis except for incubating or early primary disease. 25 Serologic response to B. burgdorferi infection is not detected, but cannot rule out early infection during which low or undetectable antibody levels to B. burgdorferi may be present. If clinically indicated, a new serum specimen should be submitted in 7-14 days. Test Performed by: [facility] - [address] [id number] 26 <1:80 (Negative) REFERENCE VALUE <1:80 (Negative) Test Performed by: [address] [address] 27 Acute inflammation: >10.00 28 Test Performed by: [address] [id number] 29 Normal Range 180 to 914 Indeterminate Range 145 to 180 Deficient Range <145 Procedures Date Code Description Status 06/21/2017 41387 Laparoscopy Repair Paraesophageal Hernia W/Out Implant Of Completed Mesh 06/21/2017 54383 Laparoscopy Repair Paraesophageal Hernia W/Out Implant Of Completed Mesh 03/30/2017 30500 Inject/Drain Joint/Bursa Major W/O US Completed 02/03/2017 13912 ECHO Transthoracic, Real-Time 2D With Doppler And Color Completed Flow 02/03/2017 93356 ECHO Transthoracic, Real-Time 2D With Doppler And Color Completed Flow 01/07/2017 60087 Stress Test Completed 01/07/2017 07722 Myocardial Perfusion Imaging Tomographic (Spect) Multiple Completed Studies 12/31/2016 47048 EKG Tracing & Interpretation Completed 04/03/2015 83682 Inject/Drain Joint/Bursa Major W/O US Completed Encounters Type Date Location Provider Dx Diagnosis Office Visit 06/06/2017 Surgical Chad Purdy, K44.9 Diaphragmatic hernia 9:00a [facility], [facility] without obstruction or gangrene K21.9 Gastro-esophageal reflux disease without esophagitis Office Visit 03/30/2017 [facility] M17.11 Unilateral primary 11:30a [facility] osteoarthritis, C.M.A. right knee Office Visit 02/08/2017 [place] Allegra Fernandez, R06.02 Shortness of breath 4:00p [facility] R00.2 Palpitations I10 Essential (primary) hypertension Office Visit 12/31/2016 10:30a [facility] Allegra Fernandez, R00.2 [facility] R06.02 Shortness of breath G52.9 Cranial nerve disorder, unspecified R42 Dizziness and giddiness Z82.49 Family hx of ischem heart dis and oth dis of the circ sys I10 Essential (primary) hypertension E78.2 Mixed hyperlipidemia Office Visit 12/21/2016 9:15a [facility] Monty Grace G52.7 Disorders of [facility] Max multiple cranial nerves H53.2 Diplopia Office Visit 11/22/2016 9:15a Dex Grace G52.7 Disorders of [facility] Max multiple cranial nerves H53.2 Diplopia R29.810 Facial weakness H81.49 Vertigo of central origin, unspecified ear Office Visit 10/05/2016 9:45a [facility] Monty Grace G52.7 Disorders of [facility] Max multiple cranial nerves H53.2 Diplopia R29.810 Facial weakness H81.49 Vertigo of central origin, unspecified ear 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 right knee Plan of Treatment 07/13/2018 - Chad Purdy MD, FACSK44.9 Diaphragmatic hernia without obstruction or gangreneFollow up:TBDRecommendations:You will need surgical repair.K21.9 Gastro-esophageal reflux disease without esophagitis Goals 07/13/2018 - Chad Purdy MD, FACSK44.9 Diaphragmatic hernia without obstruction or gangreneContinue pantoprazole and gaviscon as needed. Modify diet to eliminate bulky/fibrous foods.
[2018-07-18] MEDS ORDERED: ceFAZolin 2 GM PREMIX in ORs 2 GM/50 ML BAG IVPB ONE (11:37)
[2018-07-18] MEDS ORDERED: Famotidine IV* 10 MG/ML 2 ML (20 mg) ONE (11:38)
[2018-07-18] MEDS ORDERED: Rocuronium* 10 MG/ML VIAL ONE (12:08)
[2018-07-18] MEDS ORDERED: Propofol* 10 MG/ML 20 ML BTL ONE (12:08)
[2018-07-18] MEDS ORDERED: Ondansetron INJ* 2 MG/ML VIAL ONE ×2 (12:08→17:47)
[2018-07-18] MEDS ORDERED: Dexamethasone IV* 4 MG/ML 1 ML (4 MG) ONE (12:08)
[2018-07-18] MEDS ORDERED: Midazolam* 1 MG/ML 5 ML VIAL (5 MG) ONE (12:08)
[2018-07-18] MEDS ORDERED: Lidocaine 2% PF * 5 ML VIAL ONE (12:08)
[2018-07-18] MEDS ORDERED: fentaNYL* 50 MCG/ML 2 ML VIAL (100 MCG VIAL) ONE ×2 (12:08→18:03)
[2018-07-18] MEDS ORDERED: Bupivacaine 0.5% W/EPI SDV* 30 ML VIAL ONE (12:55)
[2018-07-18] MEDS ORDERED: Scopolamine 1.5 mg* PATCH ONE (13:02)
[2018-07-18] MEDS ORDERED: EPHEDrine (Pressors)* 50 MG/ML VIAL ONE (14:00)
[2018-07-18] MEDS ORDERED: Phenylephrine 10 MG/ML VIAL* 1 ML VIAL ONE (14:22)
[2018-07-18] MEDS ORDERED: Ondansetron ODT TAB* 4 MG PO PRN (14:56)
[2018-07-18] MEDS ORDERED: PROCHLORPERAZINE INJ 5 MG/ML 2 ML VIAL IV PRN (14:56)
[2018-07-18] MEDS ORDERED: fentaNYL* 50 MCG/ML 2 ML VIAL (100 MCG VIAL) IV PRN (14:56)
[2018-07-18] MEDS ORDERED: Naloxone* 0.4 MG/ML 1 ML VIAL IV PRN (14:56)
[2018-07-18] MEDS ORDERED: HYDROmorphone INJ1* 1 MG/ML SYRINGE ONE (16:52)
[2018-07-18] MEDS ORDERED: Lactated Ringers 1000 ML Bag* 1,000 ML IV ONE (17:37)
[2018-07-18] MEDS ORDERED: Fluticasone NASAL SPRAY 50MCG* 16 gm SPRAY BTL BOTH NARES PRN (17:37)
[2018-07-18] MEDS ORDERED: HYDROmorphone INJ1* 1 MG/ML SYRINGE IV SLOW PU PRN (17:39)
[2018-07-18] MEDS ORDERED: HYDROcodone/ACET. 7.5/325 LIQ* 15 ML UDC PO PRN (17:39)
[2018-07-18] MEDS ORDERED: Ondansetron INJ* 2 MG/ML VIAL IV PRN (17:40)
[2018-07-18] MEDS ORDERED: Pantoprazole IV* 40 MG IV SCH (18:00)
[2018-07-18] MEDS: Acetaminophen TAB* 325 MG PO PRN (21:30)
[2018-07-18] MEDS ORDERED: Pantoprazole TAB * 40 MG TAB PO SCH (22:30)
--- NOTE | 2018-07-19 00:42 | OP ---
CC: Charla Lilly MD* OPERATIVE REPORT: DATE OF OPERATION: 07/18/18 - Inpatient, room SSU 342-02 DATE OF : 47 SURGEON: Chad Purdy MD CALENDER ROLL OPERATOR: Dr. Gonzalez. ANESTHESIOLOGIST: Dr. Nguyen. ANESTHESIA: General endotracheal. PRE-OP DIAGNOSIS: Recurrent paraesophageal hernia. POST-OP DIAGNOSIS: Recurrent paraesophageal hernia. OPERATIVE PROCEDURE: Laparoscopic repair of recurrent paraesophageal hernia with mesh placement and Teofilo fundoplication. ESTIMATED BLOOD LOSS: Minimal. IV FLUIDS: 2.5 L of crystalloid. SPECIMENS: None. DRAINS: None. COMPLICATIONS: None. COUNTS: Instrument, needle, and sponge counts were correct. DESCRIPTION OF PROCEDURE: The patient was brought to the operating room and placed on the table supine. Sequential compression devices were placed on both lower extremities. General anesthesia was administered. Ontiveros catheter was placed. She was positioned and padded appropriately. She received appropriate intravenous antibiotics and was prepped and draped in the usual sterile fashion. Time-out was performed. Local anesthetic was then infiltrated into the skin and soft tissue prior to making each incision. Entry into the abdomen was through an infraumbilical vertical incision using an open technique, and after placing a 5 mm trocar, carbon dioxide was insufflated to a pressure of 15 mmHg. Under direct visualization, a 12 mm trocar was placed in the left upper quadrant, a 5 mm trocar was placed in the right upper quadrant, a 5 mm trocar was placed in the left upper quadrant laterally, and a Angela liver retractor was placed percutaneously in the subxiphoid position and used to elevate the left lobe of the liver. There was a portion of the lesser omentum that was adherent to the undersurface of the left lobe of the liver. The fundoplication appeared to be intact; however, there appeared to be herniation of this through the hiatus. An orogastric tube was placed and the stomach was evacuated. Dissection proceeded on the left side freeing posterior attachments to the left oskar and this was done with a combination of sharp and blunt dissection. The dissection proceeded anteriorly across the hiatus and then LigaSure was used to take down the omental attachment to the undersurface of the left lobe of the liver and the pars flaccida was opened so that the right oskar of the diaphragm could be identified. Ultimately, it was decided to take down the fundoplication and this was done sharply identifying the previously placed Ethibond sutures and dividing these and then the fundoplication, and then the dissection proceeded from right to left creating a retrogastric tunnel and allowing the identification of the previously placed crural sutures, which did appear to be intact. The structures that were felt to be consistent with the vagus nerves anteriorly and posteriorly were identified and preserved. It did appear to be a type 2 hernia. In this situation, it was determined we would perform additional closure of the crura and reinforce with a synthetic mesh. A 0-Ethibond suture was used to tighten the hiatus adding a single additional suture and this appeared to accommodate the 56-Cypriot bougie. Next, a Parietex 8 x 8 cm U-shaped mesh was prepped and placed into the peritoneal cavity. After positioning the mesh, it was determined that the mesh would be trimmed inferiorly and on the right crural aspect and this was performed after removing the mesh and then it was then repositioned to cover the area of the repair with good overlap. The mesh was sutured in place with interrupted 2-0 Vicryl, taking 3 sutures on the right side and 2 sutures on the left side to the diaphragm making sure the mesh was well positioned. Lastly, a fundoplication was performed over the 56-Cypriot bougie and this was created as loose floppy wrap with 2 sutures of 0-Ethibond used, the upper suture incorporating a portion of the esophageal wall. The bougie was removed. Hemostasis was assured. The ports were removed under direct visualization and the Angela liver retractor was removed under direct visualization. The 12 mm port site was closed with 0- Vicryl. The skin incisions were all closed with 4-0 Monocryl in a subcuticular fashion and Steri-Strips were applied. The patient tolerated this procedure well, was extubated and transferred to recovery room in stable condition. [id number]/[facility] #: [id number] [facility]onit
[2018-07-19] MEDS: Acetaminophen TAB* 325 MG PO PRN ×2 (01:22→08:22)
[2018-07-19] MEDS ORDERED: Losartan TAB* 25 MG PO SCH (09:00)
[2018-07-19] MEDS ORDERED: amLODIPine TAB* 5 MG PO SCH (09:00)
--- NOTE | 2018-07-19 09:20 | PN ---
Progress Note - Progress Note Date of Service: 07/19/18 SOAP: Subjective: No GERD. Has been dizzy. Pain in LUQ incision. Objective: Vital Signs Temp 99 F 07/19/18 07:26 Pulse 75 07/19/18 07:26 Resp 20 07/19/18 08:00 BP 127/61 07/19/18 07:26 Pulse Ox 95 07/19/18 07:26 Gen: NAD, sitting in chair Abd: incision c/d/i; soft; tender LUQ Intake & Output 07/18/18 07/19/18 07/19/18 18:59 06:59 18:59 Intake Total 2950 1800 Output Total 660 4400 500 Balance 2290 -2600 -500 Weight 159 lb 9.6 oz Intake: IV Fluids 2750 980 LR 2700 980 cefazolin 2 grams iv 50 Oral 200 820 Output: Urine 4400 500 Ontiveros 660 Assessment: POD#1 s/p lap repair recurrent PEH with mesh+Teofilo. Dizzy -- HD stable so may be medication related(?) Plan: UGI today. Home later if improved.
[2018-07-19 11:22] VITALS: BP 124/62
[2018-07-21] MEDS ORDERED: Scopolamine PATCH Remove* 1 NOTE MISC PATCH OFF ONE (17:34)
== END 2018-07-19 13:45 | disposition home or self-care (01) ==
LOC: OR 11:09 → EDSTATUS 13:15 → SSU 19:12
PROVIDERS: ADMIT Surgery; ATTEND Surgery
DX: K44.9 Diaphragmatic hernia without obstruction or gangrene (principal); R42 Dizziness and giddiness; Z88.2 Allergy status to sulfonamides; Z79.899 Other long term (current) drug therapy; Z85.3 Personal history of malignant neoplasm of breast; M81.0 Age-related osteoporosis without current pathological fracture; E78.00 Pure hypercholesterolemia, unspecified; K63.5 Polyp of colon; I10 Essential (primary) hypertension; G52.9 Cranial nerve disorder, unspecified; Z90.12 Acquired absence of left breast and nipple; Z90.710 Acquired absence of both cervix and uterus
CPT/HCPCS: 74246; 96365; 96366; 96375; A9270-GY; C1781; G0378; J0690; J1100; J1170; J2250; J2405; J2704; J3010